=== PATIENT | male | born 1980 | race African-American/Black ===

== ENCOUNTER 2016-07-25 23:00 | Emergency (ER) | payer SELFPAY ==
--- NOTE | ~2016-07-25 | CT71 ---
[facility] A Service of [facility] & [facility] RADIOLOGY TEXT RESULTS PATIENT: ANJU MARIO LOCATION: SED : 82 UNIT #: [id number] AGE: [address]: Anju Dinh MD SEX: M ORDER DR: [id number] [place] [id number] E MR#: [id number] #: [id number] NAME: ANJU MARIO. : 1980 SEX: M STUDY DATE/TIME: 07/26/2016 0:22 UNIT: SED ROOM: STUDY DESCRIPTION: CT Head Wo Contrast Attending Physician: Anju Dinh M.D. Ordering Physician: Anju Dinh M.D. MEDICAL IMAGING REPORT This report is preliminary unless electronic signature is present. EXAM CT head, noncontrast, 07/26/2016 HISTORY 36-year-old male in the ED complaining of severe headache with neck pain and vomiting. Symptoms began earlier tonight prior to arrival. TECHNIQUE CT examination of the head was performed without IV contrast. This CT exam was performed with one or more of the following radiation dose reduction techniques: automatic exposure control, adjustment of mA and/or kV according to patient size, and iterative reconstruction. FINDINGS The examination is negative. No evidence of intracranial hemorrhage, mass, mass effect, cerebral edema, hydrocephalus or additional abnormality. IMPRESSION Negative head CT examination. Dictated by... Bruce Connolly M.D. THIS IS AN ELECTRONICALLY VERIFIED REPORT Bruce Connolly M.D. at 07/26/2016 9:58 PM Myron TD: 07/26/2016 12:05 JOB #: [id number] MEDICAL IMAGING REPORT
[2016-07-25] MEDS ORDERED: LASIX20 MG PO (23:09)
[2016-07-25] MEDS ORDERED: IMDUR-ER60 M1 PO (23:09)
[2016-07-25] MEDS ORDERED: HYDRALAZINE HC100 MG PO (23:10)
[2016-07-25] MEDS ORDERED: METOPROLOL SUC100 MG PO (23:10)
[2016-07-25] MEDS ORDERED: NIFEDIPINE ER90 M3 PO (23:10)
[2016-07-25 23:52] LABS: BASOPHIL% 0.1 % (0-2.5); EOSINOPHIL# 0.1 X10e3 (0-0.7); EOSINOPHIL% 0.7 % (0.0-7.0); HEMATOCRIT 47.3 % (38.0-50.0); HEMOGLOBIN 15.5 gm/dL (13.0-16.0); LYMPHOCYTE# 0.5 X10e3 (1.0-3.5); LYMPHOCYTE% 5.9 % (17.0-45.0); MEAN CELL VOLUME 89.9 FL (83-96); MEAN CORPUSCULAR HEMOGLOBIN 29.5 PG (28-34); MEAN CORPUSCULAR HGB CONC 32.8 g/dL (30-36); MEAN PLATELET VOLUME 8.3 FL (6.5-11.5); MONOCYTE# 0.3 X10e3 (0-1.0); MONOCYTE% 3.6 % (3.0-12.0); NEUTROPHIL% 89.7 % (40-75); PLATELET COUNT 188 X10e3 (140-420); RED BLOOD COUNT 5.26 X10e (3.90-5.60); RED CELL DISTRIBUTION WIDTH 14.4 % (11.0-15.5); WHITE BLOOD COUNT 7.8 X10e3 (4.0-10.5)
[2016-07-25 23:53] LABS: DIFF IND NO
[2016-07-25 23:57] LABS: PROTHROMBIN TIME (PATIENT) 11.6 SECONDS (9.5-12.4)
[2016-07-26 00:05] LABS: PARTIAL THROMBOPLASTIN TIME 31.4 SECONDS (25.6-38.1)
[2016-07-26 00:06] LABS: BUN/CREATININE RATIO 13.04; CALCIUM SERUM 8.9 mg/dL (8.4-10.2); CREATININE SERUM 2.3 mg/dL (0.6-1.4); GLOM FILT RATE Estimated 34.6 mL/min (>60); POTASSIUM 3.9 mmol/L (3.5-5.1)
== END 2016-07-26 07:39 ==
LOC: SED 23:00
PROVIDERS: Emergency Medicine
DX: I10 Essential (primary) hypertension (principal); R51 Headache
CPT/HCPCS: 36415; 70450; 80048; 85025; 85610; 85730; 96374; 96375; 96376; 99291; J0360; J0780; J1200

== ENCOUNTER 2016-12-19 11:43 | Emergency (ER) | payer OTHER ==
[~2016-12-19] VITALS: Ht 182.9 cm; Wt 133.8 kg
[~2016-12-19 11:43] MED LIST: HYDRALAZINE HC100 MG PO; IMDUR-ER60 M1 PO; LASIX20 MG PO; METOPROLOL SUC100 MG PO; NIFEDIPINE ER90 M3 PO
[2016-12-19] MEDS ORDERED: AMLODIPINE-OLM1 EAC3 (11:47)
[2016-12-19] MEDS ORDERED: CARDURA1 M1 (11:47)
[2016-12-19] MEDS ORDERED: TORSEMIDE10 M1 (11:47)
[2016-12-19] MEDS ORDERED: CARBATROL200 MG (11:49)
== END 2016-12-19 13:00 | disposition home or self-care (01) ==
LOC: SED 11:43
DX: J02.9 Acute pharyngitis, unspecified (principal); I13.0 Hypertensive heart and chronic kidney disease with heart failure and stage 1 through stage 4 chronic kidney disease, or unspecified chronic kidney disease; I50.9 Heart failure, unspecified; N18.4 Chronic kidney disease, stage 4 (severe)
CPT/HCPCS: 87651; 99283

== ENCOUNTER 2017-01-24 23:55 | Emergency (ER) | payer OTHER ==
[~2017-01-24] VITALS: Ht 182.9 cm; Wt 136.5 kg
[~2017-01-24 23:55] MED LIST changes: +AMLODIPINE-OLM1 EAC3; +CARBATROL200 MG; +CARDURA1 M1; +TORSEMIDE10 M1
[2017-01-25] MEDS ORDERED: ST. JOSEPH ASPI81 M2 PO (00:33)
[2017-01-25 01:16] LABS: BASOPHIL% 0.6 % (0-2.5); EOSINOPHIL% 0.6 % (0.0-7.0); HEMOGLOBIN 12.9 gm/dL (13.0-16.0); LYMPHOCYTE# 0.3 X10e3 (1.0-3.5); LYMPHOCYTE% 5.3 % (17.0-45.0); MEAN CELL VOLUME 84.3 FL (83-96); MEAN CORPUSCULAR HEMOGLOBIN 28.7 PG (28-34); MEAN PLATELET VOLUME 7.1 FL (6.5-11.5); MONOCYTE# 0.1 X10e3 (0-1.0); MONOCYTE% 2.5 % (3.0-12.0); NEUTROPHIL# 5.5 X10e3 (1.5-7.1); PLATELET COUNT 163 X10e3 (140-420); RED CELL DISTRIBUTION WIDTH 16.2 % (11.0-15.5); URINE APPEARANCE CLEAR; URINE BILIRUBIN NEG (NEG); URINE BLOOD TRACE-INTACT (NEG); URINE COLOR YELLOW; URINE GLUCOSE NEG (NORM); URINE KETONE NEG (NEG); URINE LEUKOCYTE ESTERASE NEG (NEG); URINE NITRATE NEG (NEG); URINE PROTEIN NEG (NEG); URINE UROBILINOGEN 0.2 MG/DL (NORM)
[2017-01-25 01:18] LABS: MICRO INDICATED? YES; URINE SOURCE CLEAN CATCH
[2017-01-25 01:19] LABS: DIFF IND NO
[2017-01-25 01:20] LABS: CULTURE INDICATED? NO; URINE BACTERIA NEG (NEG); URINE RBC 0-2 /[HPF] (0-2); URINE SQUAMOUS EPITHELIAL CELL FEW /[HPF]; URINE WBC 0-2 /[HPF] (0-5)
[2017-01-25 01:33] LABS: ALBUMIN SERUM 4.8 g/dL (3.5-5.0); BILIRUBIN, DIRECT 0.4 mg/dL (0.0-0.2); BILIRUBIN,TOTAL 1.4 mg/dL (0.2-2.0); BUN/CREATININE RATIO 13.03; CALCIUM SERUM 8.9 mg/dL (8.4-10.2); CREATININE SERUM 3.3 mg/dL (0.6-1.4); GLOM FILT RATE Estimated 26.6 mL/min (>60); POTASSIUM 3.6 mmol/L (3.5-5.1); PROTEIN TOTAL SERUM 8.3 g/dL (6.0-8.3)
== END 2017-01-25 01:47 | disposition home or self-care (01) ==
LOC: SED 23:55
PROVIDERS: Emergency Medicine
DX: B34.9 Viral infection, unspecified (principal); I11.0 Hypertensive heart disease with heart failure; I50.9 Heart failure, unspecified; Z79.899 Other long term (current) drug therapy
CPT/HCPCS: 36415; 80048; 80076; 81003; 82150; 83690; 85025; 96361; 96374; 99284; J2405